=== PATIENT | female | born 1990 | race Caucasian/White ===

== ENCOUNTER 2018-03-16 06:00 | Day surgery (SDC) | payer OTHER ==
[~2018-03-16] VITALS: Ht 172.7 cm; Wt 90.7 kg
[2018-03-16 06:35] VITALS: BP 129/70
[2018-03-16 17:04] VITALS: BP 145/96
== END 2018-03-16 16:40 | disposition home or self-care (01) ==
LOC: DS 06:00
DX: Z30.2 Encounter for sterilization (principal); E66.9 Obesity, unspecified; Z98.890 Other specified postprocedural states
CPT/HCPCS: J0690; J1170; J2405; J3010; J3490